=== PATIENT | female | born 1990 | race Caucasian/White ===

== ENCOUNTER 2021-10-31 10:16 | Outpatient (RCR) | payer BC, SELFPAY ==
[2021-10-31] MEDS: RHO(D) IMMUNE GLOBULIN 300 MCG/2 ML SYRINGE IM (16:47)
== END 2022-01-29 23:59 | disposition home or self-care (01) ==
LOC: ANHLAB 10:16
PROVIDERS: PCP Family Medicine; Visit Provider Obstetrics & Gynecology
DX: Z29.13 Encounter for prophylactic Rho(D) immune globulin (principal); O36.0190 Maternal care for anti-D [Rh] antibodies, unspecified trimester, not applicable or unspecified; Z3A.00 Weeks of gestation of pregnancy not specified
CPT/HCPCS: 36415; 85461; 90384; J2790

== ENCOUNTER 2022-01-15 15:05 | Outpatient (CLI) | payer BC, SELFPAY ==
[2022-01-15 15:24] LABS: Hematocrit 30.8 % (37.0-47.0); Mean Corpuscular HGB Conc 32.5 g/dl (32-36); Mean Corpuscular Hemoglobin 30.1 pg (26-34); Mean Corpuscular Volume 92.8 fl (80-100); Mean Platelet Volume 9.6 fl (7.4-10.4); Platelet Count Result 207 k/mm3 (150-375); Red Blood Count 3.32 M/mm3 (4.2-5.4); Red Cell Distribution Width 14.2 % (11.5-14.5); White Blood Count 8.6 K/mm3 (4.5-10.0)
[2022-01-15 17:16] LABS: Rapid Plasma Reagin Non-Reactive (NonReactive)
== END 2022-01-15 15:06 | disposition home or self-care (01) ==
LOC: ANHLAB 15:07
PROVIDERS: PCP Family Medicine; Visit Provider Obstetrics & Gynecology
DX: Z34.93 Encounter for supervision of normal pregnancy, unspecified, third trimester (principal); Z3A.00 Weeks of gestation of pregnancy not specified
CPT/HCPCS: 36415; 85027; 86592; 86850; 86880; 86900; 86901

== ENCOUNTER 2022-01-16 10:13 | Inpatient (IN) | payer BC, SELFPAY ==
[2022-01-16] VITALS (44 sets, daily range): BP systolic 98–116; BP diastolic 50–74; PULSE 68–104; RESP 12–20; TEMP 36.2–36.6; O2SAT 95–100; BMI 29.2
--- NOTE | 2022-01-16 09:12 | PM.IMHP ---
H&P: HPI History of Present Illness Date/Time: 01/16/22 09:12 Chief Complaint: Here for C section Narrative: 32 y/o at 39 weeks gestation with prior , desiring repeat. She has also completed her childbearing and would like a concurrent tubal ligation. GBS pos. Review of Systems Review of Systems: All systems reviewed & are unremarkable except as noted in HPI and below PMFSH Surgical History Surgical History (Updated 01/16/22 @ 09:17 by Robert Gonzalez MD) History of delivery History of hand surgery History of reduction of orbital fracture History of tonsillectomy Family History Family History Grandparent Hypertension Father Hypertension Heart disease Social History Social History Substance use: never Spiritual care concerns: No Meds Home Medications and Allergies Allergies Allergy/AdvReac Type Severity Reaction Status Date / Time Sulfa (Sulfonamide Allergy Mild Rash Verified 12/29/21 13:50 Antibiotics) Exam Const: Orientation/consciousness: patient oriented x3 Other: Well-developed, well-nourished female in no acute distress. Neck: Thyroid: thyroid normal Lymphatic: no lymphadenopathy noted (in neck, axilla or inguinal nodes) Resp: Effort & Inspection: normal respiratory effort Auscultation: clear to auscultation bilaterally Cardio: Rate: regular rate Rhythm: regular rhythm Heart sounds: S1 normal heart sound present and S2 normal heart sound present GI: Other: ABD: Soft, nontender, nondistended, gravid. FHR 150 bpm. No guarding or rebound tenderness. No hepatosplenomegaly. : General: Yes no CVA tenderness Other: Cervix closed Back/Spine/Pelvis: Back: no CVA tenderness Skin: General skin exam: normal color and no rashes or lesions noted Neuro: General: patient oriented x3 Extrem: Other: Extremities: nontender with no edema Psych: Mental Status: mental status grossly normal Affect: normal affect Assessment and Plan Assessment and plan (1) History of delivery: Code(s): Z98.891 - History of uterine scar from previous surgery Status: Acute Assessment and Plan: A: IUP at 39 weeks with prior , desiring repeat. Multiparity with desired sterility, desiring permanent contraception. P: I offered repeat with concurrent bilateral tubal ligation. She understands there are temporary methods of contraception available to her. She understands that there are nonsurgical options as well as surgical options. She understands that tubal ligation will render her permanently sterile. She understands that there is a failure rate associated with tubal ligation, as well as an inherent ectopic gestation risk. Furthermore, she understands risks of surgery to include risks of anesthesia, risks of pain, infection, bleeding, blood products, thromboembolic phenomena and damage to adjacent structures such as bowel, bladder, ureters, blood vessels and nerves. She understands all these risks and elects to proceed with surgery. She has received the [employer]CO[employer] pamphlet on surgical sterilization. (2) Unwanted fertility: Code(s): Z30.09 - Encounter for other general counseling and advice on contraception Status: Acute
[2022-01-16] MEDS: LACTATED RINGERS 1,000 ML 125 ML IV CONT ×2 (11:00→11:43)
--- NOTE | 2022-01-16 11:26 | LDADM ---
This patient, Katherin Hackett, was admitted to Labor/Delivery/Recovery 118 on 01/16/22 at 10:13. Plans for labor, pain management and were discussed with patient. Patient/family oriented to hospital policies and general routines including ID bracelet, bed and alarms, visiting hours, pain management, procedures, bathroom and other care routines, personal items, smoking policy, room service/diet and guest tray routines, security routines, and visiting hours. Patient/Family are encouraged to report perceived risks to care and to ask questions if they do not understand what they are told or what they should do. See OBIX for further documentation.
--- NOTE | 2022-01-16 12:03 | WPDHPUPDATE1 ---
History and Physical Update Update Date/Time: 01/16/22 12:03 History and Physical has been reviewed, including an updated exam of the patient. There are NO changes in the patient's condition. Risks, benefits, and alternatives have been discussed and questions answered. Patient agrees to proceed with procedure.
[2022-01-16] MEDS: ceFAZolin 2 GM/D5W 50 ML 2 GM/50 ML BAG IVPB (12:09)
[2022-01-16] MEDS: KETOROLAC 30 MG/ML VIAL (*BKC) IV PUSH (12:58)
--- NOTE | 2022-01-16 13:08 | PM.OBPRVD ---
OB - Delivery Note Procedure Delivery date: 01/16/22 Procedure: Procedures Operation Date: 01/16/22 12:00 <No data on this case meets the specified criteria> 1) Repeat low transverse delivery 2) Bilateral tubal ligation via modified [place] technique Induction method: None Delivery monitor: External FHT and External Uterine Route of delivery: Specimen: Yes (cord blood, segments of bilateral Fallopian tubes) Quantitative Blood Loss (ml): 685 Anesthesia type: Spinal Disposition: PACU Complications: None Narrative: The patient was taken to the operating room where she was prepared and draped in the usual sterile fashion in dorsal supine position with a leftward tilt. She received cefazolin preoperatively. Spinal anesthesia was found to be adequate. A Pfannenstiel skin incision was made along the previous scar line and was carried through to the underlying layer of the fascia. The fascia was incised in the midline and the incision was extended laterally. The fascia was dissected free of the underlying rectus muscles. The rectus muscles were in the midline. The peritoneum was identified, tented up and entered sharply. The peritoneal incision was extended superiorly and inferiorly with good visualization of the bladder. The bladder blade was placed. The vesicouterine peritoneum was identified, tented up and entered sharply. The incision was extended laterally and the bladder flap was developed. The bladder blade was replaced. The uterus was then incised sharply in a transverse fashion along the lower uterine segment. The incision was extended laterally. The 's head was delivered atraumatically to the sterile field, followed by the body. The nose and mouth were bulb suctioned. After a delay, the cord was clamped and cut. The was handed off the field. Cord blood was collected. The placenta was removed manually and was passed off the field. The uterus was exteriorized and cleared of all clots and debris. The uterine incision was reapproximated using 0 Monocryl in a running, locked fashion. Excellent hemostasis resulted as did excellent reapproximation of the normal anatomy. The left fallopian tube was then identified by following it out to the fimbriated end. It was grasped in the midportion with a [place] clamp and a loop of tube was ligated with a free tie of 0 plain gut. The tubal segment was then transected and the specimen was passed off to be sent to pathology. Hemostasis was excellent. Attention was turned to the right fallopian tube which was similarly identified, ligated and transected. Once again, excellent hemostasis resulted. The uterus was returned the abdomen. The pelvis was irrigated copiously with warmed normal saline. Rigorous hemostasis was assured. The fascial layer was reapproximated using 0 Vicryl in a running fashion. The skin was closed with a running, subcuticular stitch of 4 0 Vicryl. Dermaflex was applied externally. Sponge, lap, needle and instrument counts were correct. The patient was taken to the recovery room in stable condition. The went to the nursery in stable condition. I was present and scrubbed the entire procedure. Baby Date of : 01/16/22 Time of : 12:35 Weeks of gestation at delivery: 39 Infant gender: Female Weight (pounds): 8 Weight (ounces): 7 presentation: vertex Placenta delivery description: Manual Removal and Normal Configuration Cord Vessel Description: 3 Vessels and Delayed Cord Clamping score one minute: 9 score five minutes: 9
--- NOTE | 2022-01-16 13:11 | PM.OBDSVD ---
DS: Admitting Diagnosis Discharge Date 01/18/22 Admitting Diagnosis IUP at 39 weeks Prior Deisired sterility DS: Discharge Diagnosis Discharge Diagnosis (1) Unwanted fertility: Code(s): Z30.09 - Encounter for other general counseling and advice on contraception Status: Acute (2) History of delivery: Code(s): Z98.891 - History of uterine scar from previous surgery Status: Acute OB - DS: Summary OB Procedures : NST OB Procedures Intrapartum: and Tubal ligation OB Procedures: : None Peripartum Data Procedures: Procedures Operation Date: 01/16/22 12:00 <No data on this case meets the specified criteria> Repeat LTCS with BTL Discharge Plan Discharge Attending physician on discharge: Robert Gonzalez Discharging Clinician: Robert Gonzalez Patient Disposition: Hospice - Home Activity: may shower, may drive after 2 weeks and pelvic rest Wound Care Instructions: incision open to air Discharge Instructions: Call or return if temperature above 100.4? F, increased abdominal pain, increased vaginal bleeding or any new problems. Stand Alone Forms: General Discharge Information Follow-up/Referrals: Robert Gonzalez MD [Physician] - 4 Weeks Discharge Medications: New ibuprofen 600 mg tablet 600 mg PO Q6H PRN (Reason: cramps) Qty: 30 0RF hydrocodone-acetaminophen 5-325 mg tablet 1 - 2 tablet PO Q6H Qty: 30 0RF ferrous sulfate 325 mg (65 mg iron) tablet 325 mg PO DAILY Qty: 30 0RF Date of admission: 01/16/22 10:13 Primary Care Provider: Jaimie Coffman Admitting Provider: Robert Gonzalez Attending physician on admission: Robert Gonzalez Condition: Stable
[2022-01-16] MEDS: fentaNYL CITRATE INJ (*CRX) 100 MCG/2 ML VIAL 25 MCG IV PUSH ×3 (14:22→15:00)
[2022-01-16] MEDS: LORATADINE 10 MG TABLET PO (14:26)
[2022-01-16] MEDS: OXYTOCIN 30 UNITS/NS 500 ML 30 UNITS/500 ML BAG 125 UNITS IV CONT (15:00)
--- NOTE | 2022-01-16 15:28 | PC.NURSE ---
Patient transferred to post room #277 via stretcher. Support person present. Oriented to unit, room, information board, rooming in, admission packet and security measures. Patient verbalizes understanding.
[2022-01-16] MEDS: ONDANSETRON INJ 4 MG/2 ML VIAL IV PUSH (19:16)
[2022-01-16] MEDS: KCL 20 MEQ/D5/0.45% SOD CHL 1,000 ML 125 ML IV CONT (19:25)
[2022-01-16] MEDS: SIMETHICONE 80 MG TAB.CHEW PO (20:14)
[2022-01-16] MEDS: DOCUSATE SODIUM 100 MG CAPSULE PO (20:15)
[2022-01-16] MEDS: IBUPROFEN 600 MG TABLET PO (20:15)
[2022-01-16] MEDS: HYDROcodone/acetaminophen (*CRX) 5-325 MG TABLET 1 TAB PO (20:16)
[2022-01-17] VITALS: BP 90/53; PULSE 92; RESP 18; TEMP 37.1
[2022-01-17 00:40] VITALS: BP 99/62; PULSE 85
[2022-01-17] MEDS: HYDROcodone/acetaminophen (*CRX) 5-325 MG TABLET 1 TAB PO ×4 (01:01→23:49)
[2022-01-17 03:56] VITALS: BP 97/54; PULSE 90; RESP 18; TEMP 37; O2SAT 97
[2022-01-17] MEDS: IBUPROFEN 600 MG TABLET PO ×2 (04:11→11:50)
[2022-01-17 04:50] LABS: Basophils Percent Auto 0.2 % (0.2-1.2); Eosinophils Absolute Auto 0.1 K/mm3 (0-0.3); Eosinophils Percent Auto 0.6 % (0-4.4); Hematocrit 27.6 % (37.0-47.0); Hemoglobin 8.7 g/dL (12.0-15.0); Immature Granulocyte Absolute 0.04 K/mm3 (0.00-0.031); Immature Granulocyte Percent A 0.5 % (0-0.5); Lymphocytes Absolute Auto 1.26 K/mm3 (0.9-3.2); Lymphocytes Percent Auto 15.1 % (18.3-44.2); Mean Corpuscular HGB Conc 31.5 g/dl (32-36); Mean Corpuscular Hemoglobin 29.8 pg (26-34); Mean Corpuscular Volume 94.5 fl (80-100); Mean Platelet Volume 10.2 fl (7.4-10.4); Monocytes Absolute Auto 0.6 K/mm3 (0.1-0.6); Monocytes Percent Auto 7.3 % (2.6-8.5); Neutrophils Absolute Auto 6.4 K/mm3 (1.3-6.7); Neutrophils Percent Auto 76.3 % (45.5-73.1); Platelet Count Result 182 k/mm3 (150-375); Red Blood Count 2.92 M/mm3 (4.2-5.4); Red Cell Distribution Width 14.2 % (11.5-14.5); White Blood Count 8.3 K/mm3 (4.5-10.0)
[2022-01-17 07:35] VITALS: BP 100/66; PULSE 77; RESP 16; O2SAT 100
--- NOTE | 2022-01-17 08:10 | PM.OBPNVD ---
OB - PN: Subj Subjective Date/time seen: 01/17/22 08:10 Narrative: Pain OK. Tolerating diet. Plans to go home tomorrow. OB - PN: Obj Data Labs CBC & Chem 7: 01/17/22 04:13 Labs: Laboratory Results - last 24 hr 01/17/22 01/17/22 04:13 04:13 WBC 8.3 RBC 2.92 L Hgb 8.7 L Hct 27.6 L MCV 94.5 MCH 29.8 MCHC 31.5 L RDW 14.2 Plt Count 182 MPV 10.2 Immature Gran % (Auto) 0.5 Neut % (Auto) 76.3 H Lymph % (Auto) 15.1 L [place] % (Auto) 7.3 Eos % (Auto) 0.6 Baso % (Auto) 0.2 Lymph # (Auto) 1.26 [place] # (Auto) 0.6 Eos # (Auto) 0.1 Baso # (Auto) 0.0 Abs Immat Gran (auto) 0.04 H Absolute Neuts (auto) 6.4 Absolute Nucleated RBC 0.0 Nucleated RBC % 0.0 Blood Type A Negative Antibody Screen Negative Screen Negative Baby's Blood Type A pos Baby's LUIS FERNANDO Negative Doses of RhIg Required 1 OB - PN A/P Assessment and Plan (1) Unwanted fertility: Code(s): Z30.09 - Encounter for other general counseling and advice on contraception Status: Acute (2) History of delivery: Code(s): Z98.891 - History of uterine scar from previous surgery Status: Acute Assessment and Plan: A: POD#1, s/p repeat LTCS with BTL, doing well. P: Rhogam. Plan home tomorrow, to f/u 4 weeks. Exam Narrative: S: Pain OK. Tolerating diet. Would like to go home tomorrow. AVSS I/O OK ABD soft, nontender, fundus firm. Incision c/d/i. EXT nontender Hgb 8.7 Baby Apos A: POD#1, doing well. P: Home tomorrow to f/u 4 weeks.
[2022-01-17] MEDS: MULTIVIT/MIN/PREN/FOL AC/IRON TABLET 1 TAB PO (08:22)
[2022-01-17] MEDS: LORATADINE 10 MG TABLET PO (08:22)
[2022-01-17] MEDS: DOCUSATE SODIUM 100 MG CAPSULE PO ×2 (08:22→17:45)
[2022-01-17] MEDS: SIMETHICONE 80 MG TAB.CHEW PO ×3 (08:22→19:44)
[2022-01-17] MEDS: POLYSACCHARIDE IRON COMPLEX 150 MG CAPSULE PO ×2 (08:22→17:45)
[2022-01-17] MEDS: HYDROcodone/acetaminophen (*CRX) 10-325 MG TABLET 1 TAB PO ×3 (08:23→19:44)
--- NOTE | 2022-01-17 09:00 | PC.NURSE ---
Breast pump provided due to maternal preference. Instructions given on cleaning, care, usage, that there should be no pain, pumping schedule for milk production, collection, and storage of human milk. Parents are encouraged to record pumping schedule on the feeding sheet. Patient was assessed for correct placement, flange size, to pump for comfort and nipple stretching/stimulation for adequate milk production every 3 hours (8 times in 24 hours). Mother voiced understanding of the education shared along with mom and baby guide for additional resource information.
--- NOTE | 2022-01-17 11:46 | WPDANLDNPN2 ---
Anes-Prog Note L&D-Neuraxial Date/Time: 01/17/22 11:46 Patient feedback: Patient satisfied with post-operative pain management.
--- NOTE | 2022-01-17 11:46 | WPDANLDPN2 ---
Anes-Prog Note L&D Date/Time: 01/17/22 11:46 Neuro status: Neuro function grossly intact. Vital Signs: Last Vital Signs Temp 37.0 C 01/17/22 03:56 Pulse 77 01/17/22 07:35 Resp 16 01/17/22 07:35 BP 100/66 01/17/22 07:35 Pulse Ox 100 01/17/22 07:35 O2 Del Method Room Air 01/17/22 07:30 Pain score (VAS): 0 I/O: Intake & Output 01/16/22 01/17/22 01/17/22 23:59 07:59 15:59 Intake Total 240 2000 220 Output Total 125 1950 Balance 115 50 220 Patient feedback: Patient satisfied with anesthetic care.
[2022-01-17 12:18] VITALS: BP 113/72; PULSE 80; RESP 18; TEMP 36.9; O2SAT 100
[2022-01-17] MEDS: RHO(D) IMMUNE GLOBULIN 300 MCG/2 ML SYRINGE IM (13:09)
[2022-01-17 19:25] VITALS: BP 101/66; PULSE 79; RESP 16; RESP 18; TEMP 36.6; O2SAT 100
[2022-01-18 07:45] VITALS: BP 122/72; PULSE 89; RESP 16; TEMP 37.1; O2SAT 99
[2022-01-18] MEDS: SIMETHICONE 80 MG TAB.CHEW PO (09:06)
[2022-01-18] MEDS: DOCUSATE SODIUM 100 MG CAPSULE PO (09:06)
[2022-01-18] MEDS: LORATADINE 10 MG TABLET PO (09:07)
[2022-01-18] MEDS: IBUPROFEN 600 MG TABLET PO (09:07)
[2022-01-18] MEDS: POLYSACCHARIDE IRON COMPLEX 150 MG CAPSULE PO (09:07)
[2022-01-18] MEDS: HYDROcodone/acetaminophen (*CRX) 5-325 MG TABLET 1 TAB PO (09:07)
[2022-01-18] MEDS: MULTIVIT/MIN/PREN/FOL AC/IRON TABLET 1 TAB PO (09:07)
--- NOTE | 2022-01-18 09:29 | PC.NURSE ---
Patient to view the discharge video Mother & Baby Care, The First Two Weeks online. Patient was given the opportunity and encouraged to ask questions. Patient verbalized understanding of information shared and has been given the mother/baby guide for home reference.
== END 2022-01-18 10:42 | disposition home or self-care (01) | DRG 785 ==
LOC: ANHLDR 10:19 → ANHOB2 15:33
PROVIDERS: Admitting Provider Obstetrics & Gynecology; PCP Family Medicine; Visit Provider Obstetrics & Gynecology
PROC: 10D00Z1 Extraction of Products of Conception, Low, Open Approach (ICD-10-PCS; CPT 59514; principal; 2022-01-16 12:00)
DX: O34.211 Maternal care for low transverse scar from previous cesarean delivery (principal); Z37.0 Single live birth; Z3A.39 39 weeks gestation of pregnancy; O99.824 Streptococcus B carrier state complicating childbirth; Z30.2 Encounter for sterilization
CPT/HCPCS: 36415; 85025; 85461; 88302; 90384; A9270; J0131; J0690; J1885; J2274; J2405; J2590; J2790; J3010; J3480; J7120